=== PATIENT | male | born 1940 | race Caucasian/White ===

== ENCOUNTER → 2019-07-04 | Day surgery (SDC) | payer MEDICARE, OTHER ==
[~2019-07-04] MED LIST: Lactated Ringers 1,000 ML IV SCH; Phenylephrine 1% 10 MG/ML SDV IV ONE; Propofol 200 MG/20 ML SDV IV ONE; fentaNYL 100 MCG/2 ML SDV IV ONE
[2019-07-04 08:15] VITALS: BP 119/61; PULSE 66
--- NOTE | 2019-07-04 14:23 | OR ---
DATE OF OPERATION: 07/04/2019 PREOPERATIVE DIAGNOSIS: POSITIVE COLOGUARD. POSTOPERATIVE DIAGNOSIS: POSITIVE COLOGUARD. SURGEON: Wenceslao Sadler MD PROCEDURE: DIAGNOSTIC COLONOSCOPY WITH BIOPSIES X2, FORCEPS POLYP REMOVAL X1. ANESTHESIA: MAC. COMPLICATIONS: None. SPECIMEN: 1. Small hyperplastic polyp, distal transverse colon. 2. Thickened ileocecal valve. FINDINGS: 1. Full-length colonoscopy. 2. Minimal sigmoid diverticulosis. 3. Small hyperplastic polyp, distal transverse colon. 4. Thickened ileocecal valve with some mucosal abnormality. RECOMMENDATIONS: We will follow up in 2 weeks for pathology report. INDICATIONS: The patient was in for routine physical. It has been 13 or 14 years since his last colonoscopy. He desired a Cologuard for colon cancer screening. It was positive and we proceeded with diagnostic scope. DESCRIPTION OF PROCEDURE: The patient was prepped and draped, placed in the left lateral decubitus position. A lubricated Olympus colonoscope was inserted and with relative ease advanced to the cecum. The patient had a wrap around the ileocecal valve, very prominent with a little bit of superficial mucosal abnormality. We did 2 biopsies of it, could just be normal variation. There were no other lesions in the cecum or ascending colon. In the distal transverse colon, the patient had 1 small flat sessile polyp, likely hyperplastic. It was removed in its entirety with a forceps. The descending colon and sigmoid were benign other than some very minimal sigmoid diverticular disease. Rectal vault appeared benign. Retroflexion showed no perianal lesions, a lot of hemorrhoidal tissue present. The air was then suctioned. Scope was removed without complication. GIULIANO/APOLINAR /[id number]
== END ==
LOC: CC.SDS 06:20
PROVIDERS: ATTEND Family Medicine
DX: D12.3 Benign neoplasm of transverse colon (principal); K57.30 Diverticulosis of large intestine without perforation or abscess without bleeding; K52.9 Noninfective gastroenteritis and colitis, unspecified; K63.89 Other specified diseases of intestine; I10 Essential (primary) hypertension; K64.9 Unspecified hemorrhoids; K21.9 Gastro-esophageal reflux disease without esophagitis; N40.0 Benign prostatic hyperplasia without lower urinary tract symptoms; Z98.890 Other specified postprocedural states; Z88.8 Allergy status to other drugs, medicaments and biological substances; Z79.899 Other long term (current) drug therapy
CPT/HCPCS: 00811; 45380; J2370; J2704; J3010; J7120